=== PATIENT | male | born 1995 | race Caucasian/White ===

== ENCOUNTER 2018-01-27 18:47 | Emergency (ER) | payer BC ==
[~2018-01-27] VITALS: Ht 193 cm; Wt 226.8 kg
[~2018-01-27 18:47] MED LIST: AMOCLA600S PO; AZIT250 PO; CODACEE120 PO; CRUTCH2 USE; HYDACE5 PO; HYDGUAL120 PO; IBUP600 PO; IBUP800 PO; Percocet 5-3251 EACH PO; RXHYDACE PO; SULFA; TOBR.3OPSO OP; Zofran8 MG PO
[2018-01-27 20:36] LABS: BASOPHILS ABSOLUTE AUTO 0.08 K/mm3 (0.00-0.23); BASOPHILS PERCENT AUTO 1 % (0-2); EOSINOPHILS ABSOLUTE AUTO 0.12 K/mm3 (0.00-0.68); EOSINOPHILS PERCENT AUTO 1 % (0-6); Hematocrit 41.1 % (37.0-53.0); Hemoglobin 13.1 g/dL (13.5-17.5); IMMATURE GRAN ABSOLUTE AUTO 0.08 K/mm3 (0.00-0.10); IMMATURE GRAN PERCENT AUTO 1 % (0-1); LYMPHOCYTES ABSOLUTE AUTO 3.31 K/mm3 (0.84-5.20); LYMPHOCYTES PERCENT AUTO 20 % (21-46); MONOCYTES ABSOLUTE AUTO 0.83 K/mm3 (0.16-1.47); MONOCYTES PERCENT AUTO 5 % (4-13); Mean Corpuscular HGB 26.5 pg (26.0-34.0); Mean Corpuscular HGB Conc 31.9 g/dL (31.5-36.5); Mean Corpuscular Volume 83 fL (80-100); Mean Platelet Volume 9.2 fL (9.1-12.4); NEUTROPHILS ABSOLUTE AUTO 12.31 K/mm3 (1.96-9.15); NEUTROPHILS PERCENT AUTO 74 % (41-73); Platelet Count 412 K/mm3 (150-400); RDW Coefficient Variation 14.6 % (11.7-14.2); RDW Standard Deviation 43.9 fL (35.1-46.3); Red Blood Cell Count 4.94 M/mm3 (4.30-5.90); White Blood Cell Count 16.73 K/mm3 (4.00-11.30)
[2018-01-27 21:00] LABS: Alanine Aminotransfer (ALT/SGP 162 U/L (12-78); Albumin, Blood 3.2 g/dL (3.4-5.0); Albumin/Globulin Ratio 0.6 (0.8-1.8); Alk Phos 108 U/L (50-136); Anion Gap 7 mmol/L (6-16); Aspartate Aminotrans (AST/SGOT 121 U/L (12-37); Bilirubin, Total 0.3 mg/dL (0.1-1.0); Blood Urea Nitrogen 16 mg/dL (8-24); Bun/Creatinine Ratio 19.4 (12.0-20.0); CO2, Blood 26 mmol/L (21-32); Calcium, Blood 9.1 mg/dL (8.5-10.1); Chloride, Blood 103 mmol/L (98-108); Creatinine, Blood 0.83 mg/dL (0.60-1.20); Globulin, Blood 5.3 g/dL (2.2-4.0); Glomerular Filtration Rate >60 (60-); Glucose, Blood 106 mg/dL (70-99); Sodium, Blood 136 mmol/L (136-145); Total Protein, Blood 8.5 g/dL (6.4-8.2)
== END 2018-01-28 01:02 | disposition home or self-care (01) ==
LOC: ER 18:47
PROVIDERS: Emergency Medicine
DX: R07.9 Chest pain, unspecified (principal); Z88.2 Allergy status to sulfonamides
CPT/HCPCS: 36415; 71046; 80053; 83690; 84484; 85025; 85379; 93005; 93010; 99284-25

== ENCOUNTER 2021-11-24 03:56 | Emergency (ER) | payer SELFPAY ==
[~2021-11-24] VITALS: Ht 193 cm; Wt 190.5 kg
[2021-11-24] MEDS ORDERED: CEPH500 PO (06:10)
== END 2021-11-24 08:06 | disposition home or self-care (01) ==
LOC: ER 03:56
DX: M79.605 Pain in left leg (principal); R22.42 Localized swelling, mass and lump, left lower limb; Z88.2 Allergy status to sulfonamides; Z88.8 Allergy status to other drugs, medicaments and biological substances
CPT/HCPCS: 36415; 85379; 93971

== ENCOUNTER 2024-11-13 17:29 | Emergency (ER) | payer OTHER ==
[~2024-11-13] VITALS: Ht 190.5 cm; Wt 254.0 kg
[~2024-11-13 17:29] MED LIST changes: +CEPH500 PO
[2024-11-13 18:18] VITALS: BP 181/115
[2024-11-13] MEDS ORDERED: OXYACE7.5T PO (19:45)
[2024-11-13] MEDS ORDERED: ACET500 PO (19:45)
== END 2024-11-13 20:20 | disposition home or self-care (01) ==
LOC: ER 17:29
DX: S92.351A Displaced fracture of fifth metatarsal bone, right foot, initial encounter for closed fracture (principal); W18.30XA Fall on same level, unspecified, initial encounter; Z88.2 Allergy status to sulfonamides; Z88.5 Allergy status to narcotic agent
CPT/HCPCS: 29515; 73630; 99283-25; A9270